=== PATIENT | male | born 1990 | race Caucasian/White ===

== ENCOUNTER 2017-11-20 20:16 | Emergency (ER) | payer SELFPAY ==
[2017-11-20] MEDS ORDERED: Sodium Chloride 0.9% 1,000 ML IV ONE (20:31)
[2017-11-20] MEDS ORDERED: Ondansetron 4 MG/2 ML SDV IVPUSH ONE (20:31)
[2017-11-20] MEDS ORDERED: Ketorolac 30 MG/ML SDV IVPUSH ONE (20:31)
--- NOTE | 2017-11-20 20:41 | EDM.PDOC ---
ED HPI GENERAL MEDICAL PROBLEM - General Chief Complaint: Flank Pain Stated Complaint: KIDNEY STONES Time Seen by Provider: 11/20/17 20:21 Source of Information: Reports: Patient History Limitations: Reports: No Limitations - History of Present Illness INITIAL COMMENTS - FREE TEXT/NARRATIVE: HISTORY AND PHYSICAL: History of present illness: Patient is a 27-year-old male who presents to the emergency room today with complaints of right-sided flank pain was 3 days. He states that he has noted some dark urine. Does have a history of kidney stones and believes this is another kidney stone, as the pain is similar. He denies any fever, chills, chest pain or shortness of breath. His right flank pain radiates around into the right groin. He denies any testicular pain or swelling. He denies any nausea , vomiting, diarrhea or constipation. He is able to void freely without difficulty. Review of systems: As per history of present illness and below otherwise all systems reviewed and negative. Past medical history: As per history of present illness and as reviewed below otherwise noncontributory. Surgical history: As per history of present illness and as reviewed below otherwise noncontributory. Social history: No reported history of drug or alcohol abuse. Family history: As per history of present illness and as reviewed below otherwise noncontributory. Physical exam: General: Developed and well-nourished 27-year-old male. Alert and oriented. Nontoxic appearing and in no acute distress. HEENT: Atraumatic, normocephalic, pupils equal and reactive bilaterally, negative for conjunctival pallor or scleral icterus, mucous membranes moist, throat clear, neck supple, nontender, trachea midline. No drooling or trismus noted. No meningeal signs Lungs: Clear to auscultation, breath sounds equal bilaterally, chest nontender. Heart: S1S2, regular rate and rhythm without overt murmur Abdomen: Soft, nondistended, nontender. Negative for masses or hepatosplenomegaly. Mild right sided costovertebral tenderness. Genitourinary: Deferred. Rectal: Deferred. Skin: Intact, warm, dry. No lesions or rashes noted. Extremities: Atraumatic, negative for cords or calf pain. Neurovascular unremarkable. Neuro: Awake, alert, oriented. Cranial nerves II through XII unremarkable. Cerebellum unremarkable. Motor and sensory unremarkable throughout. Exam nonfocal. Notes: Previous had lithotripsy 2-3 years ago. Did offer the patient IV fluids and pain medications while we are waiting for his lab work, he declines but is willing to do the labs and CT of the abdomen and pelvis. Patient states he changed his mind on wanting to do any lab or CTs as he feels these tests are too expensive. He currently does not have health insurance and would like to wait on any testing at this time. He is aware of the risks of not performing the CT as this kidney stone could be obstructing. He is aware of all risks and is agreeable to following up as an outpatient with urology or his primary care provider once his insurance kicks in. Discussed signs and symptoms which would prompt him to come back to the emergency room. He voices understanding. I will give him Flomax and Tramadol and treat him clinically. Diagnostics: CBC, CMP, UA, CT abdomen and pelvis Therapeutics: Declined Impression: Flank pain, right Plan: 1. Today you declined labs and CT scan. I cannot diagnose if your kidney stone is obstructing or if it will pass on its own. Currently we will treat as a "kidney stone. Please take the Flomax once daily. Increase your oral fluids. 2. Tylenol and/or ibuprofen for pain management. Tramadol as needed for moderate to severe pain. This medication may cause drowsiness so do not take while driving or needing to be functioning outside of the house. 3. If your symptoms worsen or do not improve please return to the emergency room. Follow-up with urology as needed. The ED as needed and as discussed. Definitive disposition and diagnosis as appropriate pending reevaluation and review of above. pelvic/r flank Pain Score (Numeric/FACES): 2 - Related Data Allergies Allergy/AdvReac Type Severity Reaction Status Date / Time No Known Allergies Allergy Verified 11/20/17 20:24 Home Meds: Home Meds . [No Known Home Meds] 11/20/17 [History] Past Medical History - Past Health History Medical/Surgical History: Denies Medical/Surgical History Social & Family History - Family History Oncologic: Reports: Pancreatic - Tobacco Use Smoking Status *Q: Never Smoker Second Hand Smoke Exposure: No - Caffeine Use Caffeine Use: Reports: Coffee, Energy Drinks - Recreational Drug Use Recreational Drug Use: No ED ROS GENERAL - Review of Systems Review Of Systems: ROS reveals no pertinent complaints other than HPI. ED EXAM, RENAL/ - Physical Exam Exam: See Below (See dictation) Course - Vital Signs Last Recorded V/S: Last Vital Signs Temp 97.7 F 11/20/17 21:05 Pulse 88 11/20/17 21:05 Resp 18 11/20/17 21:05 BP 130/70 11/20/17 21:05 Pulse Ox 98 11/20/17 21:05 - Orders/Labs/Meds Meds: Medications Discontinued Medications Generic Name Dose Route Start Last Admin Trade Name Elicia PRN Reason Stop Dose Admin Sodium Chloride 1,000 mls @ 999 mls/hr 11/20/17 20:31 11/20/17 21:03 Normal Saline IV 11/20/17 21:31 Not Given STAT ONE Ketorolac Tromethamine 30 mg 11/20/17 20:31 11/20/17 21:03 Toradol IVPUSH 11/20/17 20:32 Not Given ONETIME ONE Ondansetron HCl 4 mg 11/20/17 20:31 11/20/17 21:03 Zofran IVPUSH 11/20/17 20:32 Not Given ONETIME ONE Tamsulosin HCl 0.4 mg 11/20/17 20:55 11/20/17 21:02 Flomax PO 11/20/17 20:56 0.4 mg ONETIME ONE Administration Departure - Departure Time of Disposition: 20:54 Disposition: Home, Self-Care 01 Clinical Impression: Flank pain - Discharge Information Instructions: Flank Pain, [id number] Referrals: PCP,None [Primary Care Provider] - Forms: ED Department Discharge Additional Instructions: The following information is given to patients seen in the emergency department who are being discharged to home. This information is to outline your options for follow-up care. We provide all patients seen in our emergency department with a follow-up referral. The need for follow-up, as well as the timing and circumstances, are variable depending upon the specifics of your emergency department visit. If you don't have a primary care physician on staff, we will provide you with a referral. We always advise you to contact your personal physician following an emergency department visit to inform them of the circumstance of the visit and for follow-up with them and/or the need for any referrals to a consulting specialist. The emergency department will also refer you to a specialist when appropriate. This referral assures that you have the opportunity for follow-up care with a specialist. All of these measure are taken in an effort to provide you with optimal care, which includes your follow-up. Under all circumstances we always encourage you to contact your private physician who remains a resource for coordinating your care. When calling for follow-up care, please make the office aware that this follow-up is from your recent emergency room visit. If for any reason you are refused follow-up, please contact the [facility] Emergency Department at and asked to speak to the emergency department charge nurse. [facility] [address] [place] [id number] [facility] - Urology [address] [place] [id number] 1. Today you declined labs and CT scan. I am unable to tell you in your kidney stone is obstructing or if it will pass on its own. Currently we will treat with Flomax, please take once daily. Increase your oral fluids. 2. Tylenol and/or ibuprofen for pain management. Tramadol as needed for moderate to severe pain. This medication may cause drowsiness so do not take while driving or needing to be functioning outside of the house. 3. If your symptoms worsen or do not improve please return to the emergency room. Follow-up with urology as needed. The ED as needed and as discussed.
[2017-11-20] MEDS ORDERED: Tamsulosin 0.4 MG Cap.ER PO ONE (20:55)
== END 2017-11-20 21:05 | disposition home or self-care (01) ==
LOC: MW.ED 20:16
DX: R10.9 Unspecified abdominal pain (principal); Z87.442 Personal history of urinary calculi
CPT/HCPCS: 99283; A9270